=== PATIENT | female | born 1990 | race Caucasian/White ===

== ENCOUNTER 2017-04-27 14:12 | Emergency (ER) | payer MEDICAID ==
[~2017-04-27] VITALS: Ht 163.8 cm; Wt 115.0 kg
[2017-04-27 14:35] VITALS: BP 134/86
[2017-04-27] MEDS ORDERED: DEXAMETHASONE 4 MG TABLET ONE (15:17)
[2017-04-27] MEDS ORDERED: DIAZEPAM 5 MG TABLET ONE (15:17)
[2017-04-27] MEDS ORDERED: KETOROLAC 30 MG/1 ML ONE (15:17)
[2017-04-27] MEDS ORDERED: DEXAMETHASONE 4 MG TABLET PO ONE (15:30)
[2017-04-27] MEDS ORDERED: KETOROLAC 30 MG/1 ML IM ONE (15:30)
[2017-04-27] MEDS ORDERED: DIAZEPAM 5 MG TABLET PO ONE (15:30)
== END 2017-04-27 15:56 | disposition home or self-care (01) ==
LOC: ED 15:30
DX: M25.551 Pain in right hip (principal); M79.651 Pain in right thigh; G89.29 Other chronic pain; M54.5 Low back pain
CPT/HCPCS: 96372; 99283; J1885

== ENCOUNTER 2017-06-29 16:26 | Emergency (ER) | payer MEDICAID ==
[~2017-06-29] VITALS: Ht 165.1 cm; Wt 120.4 kg
[2017-06-29 16:43] VITALS: BP 174/107
[2017-06-29] MEDS ORDERED: HYDROcodone/APAP 5/325 TABLET ONE (17:44)
[2017-06-29] MEDS ORDERED: HYDROcodone/APAP 5/325 TABLET PO ONE (18:00)
== END 2017-06-29 17:44 | disposition home or self-care (01) ==
LOC: ED 17:00
DX: K08.89 Other specified disorders of teeth and supporting structures (principal); I10 Essential (primary) hypertension
CPT/HCPCS: 99283

== ENCOUNTER 2017-11-27 21:44 | Emergency (ER) | payer MEDICAID ==
[~2017-11-27] VITALS: Ht 165.1 cm; Wt 118.8 kg
[2017-11-27 21:54] VITALS: BP 139/89
[2017-11-27] MEDS ORDERED: HYDROcodone/APAP 5/325 TABLET ONE (22:42)
[2017-11-27] MEDS ORDERED: HYDROcodone/APAP 5/325 TABLET PO ONE (23:00)
== END 2017-11-27 23:20 | disposition home or self-care (01) ==
LOC: ED 22:39
DX: S93.491A Sprain of other ligament of right ankle, initial encounter (principal); S70.02XA Contusion of left hip, initial encounter; S70.01XA Contusion of right hip, initial encounter; I10 Essential (primary) hypertension; E03.9 Hypothyroidism, unspecified; S70.11XA Contusion of right thigh, initial encounter; W10.9XXA Fall (on) (from) unspecified stairs and steps, initial encounter; Y93.89 Activity, other specified; Y92.89 Other specified places as the place of occurrence of the external cause; Y99.8 Other external cause status
CPT/HCPCS: 99284

== ENCOUNTER 2019-07-27 15:17 | Emergency (ER) | payer MEDICAID ==
[~2019-07-27] VITALS: Ht 172.7 cm; Wt 114.3 kg
[2019-07-27 15:30] VITALS: BP 107/65
== END 2019-07-27 17:44 | disposition home or self-care (01) ==
LOC: ED 17:35
DX: M77.52 Other enthesopathy of left foot and ankle (principal)
CPT/HCPCS: 73610; 93971; 99284; J7512